=== PATIENT | male | born 1995 | race Caucasian/White ===

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

== ENCOUNTER 2017-04-01 18:51 | Emergency (ER) | payer OTHER ==
[2017-04-01 18:57] VITALS: RESP 16
[2017-04-01 18:59] VITALS: TEMP 98.1
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
[2017-04-01 19:45] VITALS: BP 118/68; PULSE 68; O2SAT 97
== END 2017-04-01 19:46 | disposition home or self-care (01) ==
DX: Z04.1 Encounter for examination and observation following transport accident (principal); F17.200 Nicotine dependence, unspecified, uncomplicated; V49.40XA Driver injured in collision with unspecified motor vehicles in traffic accident, initial encounter; Y92.410 Unspecified street and highway as the place of occurrence of the external cause; Y99.8 Other external cause status; Y93.89 Activity, other specified